=== PATIENT | female | born 1990 | race Caucasian/White ===

== ENCOUNTER 2017-04-09 13:02 | Emergency (ER) | payer OTHER ==
[~2017-04-09] VITALS: Ht 165.1 cm; Wt 57.4 kg
[~2017-04-09 13:02] MED LIST: AUGMENTIN875 MG PO; CHROMAGEN,1 CAPSULE PO; ENDOCET 5-3251 EACH PO; IBUPROFEN800 MG PO; INDOCIN25 MG PO; LIDOCAINE20 MG/1 M5 PO; NOHOMEMEDS; NORCO 5/3251 TABLET PO; PREDNISONE10 MG PO; PRENATAL VITAM1 EAC2 PO; SUBUTEX PO
[2017-04-09 14:42] LABS: EOSINOPHIL (%) 0 % (0-5); IMMATURE GRANULOCYTE (%) 0.7 % (0.0-0.7); IMMATURE GRANULOCYTE COUNT 0.1 K/uL; INSTRUMENT ABS NEUTROPHIL CT 17.4 K/uL; LYMPHOCYTE COUNT 0.8 K/uL (1.0-2.8); MCH 28.2 PG (29.0-34.0); MCHC 32.8 G/DL (30.0-36.0); MEAN PLAT.VOLUME 10.6 uM^3 (9.5-12.4); MONOCYTE (%) 3.4 % (3-12); MONOCYTE COUNT 0.6 K/uL (0-0.8); NEUTROPHIL (%) 91.6 % (45-76); NEUTROPHIL COUNT 17.4 K/uL (1.8-6.4); PLATELET COUNT 160 K/uL (156-360); RBC DIS.WIDTH-SD 40.4 % (39-53); RED BLOOD COUNT 4.65 M/uL (3.80-5.20); WHITE BLOOD COUNT 18.9 K/uL (4.1-10.2)
[2017-04-09 14:50] LABS: CHLORIDE 103 mEq/L (99-109); POTASSIUM 3.7 mEq/L (3.7-5.4); SODIUM 136 mEq/L (136-147)
[2017-04-09 14:52] LABS: GLUCOSE 115 mg/dL (70-99)
[2017-04-09 14:54] LABS: ANION GAP 10 MEQ/L (2-14); TOTAL BILIRUBIN 1.6 mg/dL (0.0-1.0)
[2017-04-09 14:56] LABS: ALKALINE PHOSPHATASE 49 IU/L (3-129); GFR ESTIMATE (CALCULATED) > 59 mL/min/
[2017-04-09 14:57] LABS: UREA NITROGEN (BUN) 12 mg/dL (9-23)
[2017-04-09 15:05] LABS: QUANTITATIVE HCG < 4.0 MIU/ML
[2017-04-09 15:28] LABS: ADD MIUA? YES; BILIRUBIN NEGATIVE; BLOOD SMALL; COLOR YELLOW ((YELLOW)); GLUCOSE (STRIP) NEGATIVE; KETONES NEGATIVE; LEUKOCYTES MODERATE; NITRITE NEGATIVE; PROTEIN (STRIP) NEGATIVE; UROBILINOGEN 0.2 MG/DL (0.2-1.0)
[2017-04-09 15:34] LABS: BACTERIA RARE /HPF; EPITHELIAL CELLS 2+ /HPF; HYALINE CASTS 0-5 /LPF; MUCUS 2+ /LPF; RED BLOOD CELLS 0-5 /HPF (0-5); UCUL ADDED? YES; WHITE BLOOD CELLS 15-20 /HPF (0-5)
[2017-04-09] MEDS ORDERED: BENTYL20 MG PO (20:47)
[2017-04-09] MEDS ORDERED: ZOFRAN4 MG PO (20:47)
[2017-04-09 21:20] VITALS: BP 136/92
== END 2017-04-09 22:04 | disposition home or self-care (01) ==
LOC: EME 13:02
PROVIDERS: Emergency Medicine
DX: R10.32 Left lower quadrant pain (principal)
CPT/HCPCS: 74177; 76856; 80053; 81003; 83605; 84702; 85025; 87040; 87086; 99281; 99285; J1885; J2270; J2405; J7030